=== PATIENT | female | born 1990 | race Caucasian/White ===

== ENCOUNTER 2021-03-26 07:30 | Emergency (ER) | payer OTHER ==
[~2021-03-26] VITALS: Ht 162.6 cm; Wt 77.1 kg
[2021-03-26 07:40] VITALS: BP 165/82
[2021-03-26] MEDS ORDERED: ARMOUR THYROID180 M1 PO (07:51)
[2021-03-26] MEDS ORDERED: KLONOPIN0.5 MG PO (07:51)
[2021-03-26] MEDS ORDERED: ZOFRAN ODT4 MG DISSOLVE (09:53)
== END 2021-03-26 10:08 | disposition home or self-care (01) ==
LOC: M.ERS 07:30
DX: F07.81 Postconcussional syndrome (principal); M25.561 Pain in right knee; R51.9 Headache, unspecified; E03.9 Hypothyroidism, unspecified; F41.9 Anxiety disorder, unspecified; F32.9 Major depressive disorder, single episode, unspecified; Z98.51 Tubal ligation status; Z79.899 Other long term (current) drug therapy